=== PATIENT | male | born 1950 | race Caucasian/White ===

== ENCOUNTER 2018-06-13 13:26 | Emergency (ER) | payer MEDICARE, OTHER, SELFPAY ==
[2018-06-13 13:27] VITALS: BP 101/64; PULSE 79; RESP 16; TEMP 36.6; BMI 23.0
[2018-06-13] MEDS: Dicyclomine 20 MG/2 ML Vial IM (15:08)
[2018-06-13] MEDS: 0.9% Normal Saline 1,000 ML 1000 ML IV (15:08)
[2018-06-13 15:19] LABS: Absolute Lymphocyte Count 1.23 X10^3/ul (0.83-4.51); Absolute Neutrophil Count 4.7 X10^3/uL (2.0-7.7); Basophil# 0.03 X10^3/uL; Basophil% 0.5 % (0-1); Eosinophil# 0.09 X10^3/uL; Eosinophils% 1.4 % (0-5); Hematocrit 38.6 % (40-54); Hemoglobin 13.1 g/dl (13.0-16.5); Lymphocyte # 1.23 X10^3/ul (4.0); Lymphocyte % 18.6 % (19-41); Mean Corp Hgb Conc 33.9 g/gl (32-36); Mean Corpuscular Hgb 34.7 pg (27.0-32.0); Mean Corpuscular Volume 102.1 fL (80-94); Mean Platelet Vol. 12.2 fl (6.2-12.0); Monocyte# 0.53 X10^3/uL; Neutrophil # 4.73 X10^3/uL (2.7-7.7); Neutrophil % 71.3 % (47-70); Platelet Count 77 K/mm3 (150-450); RBC Distribution Width CV 14.1 % (11.6-14.6); RBC Distribution Width SD 52.9 fl (35.1-43.9); Red Blood Count 3.78 M/mm3 (4.6-6.2); White Blood Count 6.6 K/mm3 (4.4-11.0)
[2018-06-13 15:20] LABS: POSITIVE COUNT NO; POSITIVE DIFFERENTIAL NO; POSITIVE MORPHOLOGY NO
[2018-06-13 15:26] VITALS: BP 114/71; PULSE 57; RESP 16; O2SAT 100
[2018-06-13 15:35] LABS: ALB/GLOB Ratio 0.8 RATIO (0.9-2.4); AST(SGOT) 28 U/L (15-37); Alanine Aminotransfer ALT/SGPT 20 U/L (16-61); Albumin, Serum 2.7 g/dL (3.2-5.0); Alkaline Phosphatase 70 U/L (45-117); Anion Gap 6 (5-15); BUN 7 mg/dL (7-18); BUN/Creat Ratio 7.1 RATIO (10-20); Chloride 102 mmol/L (98-107); Creatinine, Serum 0.99 mg/dL (0.70-1.30); EST Glomerular Filtration Rate 80 mL/min (>60); Est Glom Filt Rate - Afr Amer 97 mL/min (>60); Estimated Creatinine Clearance 74.45 ml/min; Globulin 3.2 g/dL (2.2-4.2); Glucose 246 mg/dL (74-106); Potassium 4.7 mmol/L (3.5-5.1); Protein, Total 5.9 g/dL (6.4-8.2); Sodium Level 135 mmol/L (136-145)
--- NOTE | 2018-06-13 16:18 | ED.VISSUMM ---
- ER Visit Summary Date of Service: 06/13/18 Chief Complaint: Diarrhea History of Present Illness: The patient is a 68 M patient presents with 6 days of abdominal cramping and loose watery stool about 10-12 episodes per day. This is subsiding but he feels more weak. He has no fever or chills he has abdominal cramping but no significant pain and this is intermittent he had initial nausea and vomiting which also improved. He has no chest pain shortness of breath no travel history no antibiotics no recent camping and no recent contacts. Physical Examination: Not appear in acute distress. Slightly dry mucous membranes, no obvious facial deformity No C-spine tenderness supple neck. Regular rate and rhythm without any obvious murmurs Clear lungs bilaterally speaking in full sentences without any obvious respiratory distress Abdomen soft and nontender no guarding or rebound Moves all extremities without any difficulty or pain. Skin does not show any obvious rashes or lesions, no trauma. Alert oriented ?3 with no gross focal deficit Emergency Department Course and Treatment: Patient is given IV fluids, he feels slightly better. He is given Bentyl. I do believe this is self limiting diarrheal infection. He had recent blood work and stool work which I obtained from the outside facility. C. difficile is negative and the rest of the stool cultures so far negative. He appears well and he will be discharged in stable condition Discharge stable condition Impression: [Diarrhea] This note was generated with [employer] dictation software. It may contain incorrect words, spelling, and punctuation that were not noted in review of the chart prior to signing ED Disposition - Plan for ED Patient: Disposition: Home or Assisted Living Chief Complaint: Diarrhea Instructions: ED Vomiting Diarrhea Nonspecific Ad Prescriptions: Dicyclomine HCl [Bentyl] 20 mg PO TIDAC #20 cap Referrals: Joey Escalante Jr., MD [Primary Care Provider] - 3-5 Days
[2018-06-13 16:34] VITALS: BP 114/76; PULSE 57; RESP 16; O2SAT 100
== END 2018-06-13 16:39 | disposition home or self-care (01) ==
PROVIDERS: Emergency Provider Emergency Medicine; Family Provider Internal Medicine; PCP Internal Medicine
DX: R19.7 Diarrhea, unspecified (principal); R10.9 Unspecified abdominal pain; E10.9 Type 1 diabetes mellitus without complications; I10 Essential (primary) hypertension; E78.00 Pure hypercholesterolemia, unspecified; Z72.0 Tobacco use
CPT/HCPCS: 80053; 85025; 96360; 96372; 99282; J7030; A4216

== ENCOUNTER 2022-04-16 13:32 | Emergency (ER) | payer MEDICARE, SELFPAY ==
[2022-04-16 13:33] VITALS: BP 121/72; PULSE 77; RESP 16; TEMP 35.9; O2SAT 98; BMI 23.3
[2022-04-16] MEDS: Acetaminophen 500 MG Tablet 1000 MG PO (14:46)
--- NOTE | 2022-04-16 15:10 | RAD_ITS ---
HISTORY: Cough. TECHNIQUE: XR Chest 1 View. COMPARISON: None. FINDINGS: CARDIOMEDIASTINAL BORDERS: Cardiac silhouette within normal limits in size. Mediastinal contour unremarkable with mild calcification of the aortic knob. LUNGS: Radiographically clear. PLEURA: No pleural effusion or pneumothorax seen. OSSEOUS STRUCTURES: Degenerative change. RAD/Chest 1 View (Portable) IMPRESSION: No acute cardiopulmonary process identified. Electronically Signed: Bhavani Nunez MD at 15:41 EDT ,
[2022-04-16] MEDS: 0.9% Normal Saline 1,000 ML 1000 ML IV (15:11)
--- NOTE | 2022-04-16 15:14 | EDS_ITS ---
HPI History of Present Illness Chief Complaint: General Illness Informant: patient Onset/Context/Timing Onset: Days (5) Context: Gradual Onset Timing: Continuous Quality: Aching, weakness Location: Generalized Worsened by: Nothing Relieved by: Nothing Narrative Narrative: Patient presents with generalized weakness that has been getting worse over the last 5 days. Patient states he feels aching all over. Patient states nothing makes it better and nothing makes it worse. Patient states he was exposed to COVID-19 recently. Patient states he tested +2 days ago and again today. Patient admits to a fever at home of 100.8. Patient admits to some sweats. Patient also admits to some nausea, vomiting, and diarrhea. Patient admits to general myalgias and a mild cough. Patient admits to some rhinorrhea. [facility] Medical History (Updated 04/16/22 @ 16:[address] Irving Sexton, ) Celiac disease Diabetes Helicobacter pylori (H. pylori) Hypothyroidism Home Medications dicyclomine 10 mg capsule 20 mg PO TIDAC #20 caps 06/13/18 [Rx Last Taken Unknown] insulin glargine 100 unit/mL subcutaneous solution (Lantus U-100 Insulin) 16 un its SQ QHS 06/13/18 [History Last Taken Unknown] insulin lispro 100 unit/mL subcutaneous solution (Humalog U-100 Insulin) 1 units SQ ACHS 06/13/18 [History Last Taken Unknown] levothyroxine 137 mcg tablet 137 mcg PO DAILY 06/13/18 [History Last Taken Unknown] lisinopril 5 mg tablet 5 mg PO DAILY 06/13/18 [History Last Taken Unknown] magnesium oxide 200 mg PO DAILY 06/13/18 [History Last Taken Unknown] ondansetron 4 mg disintegrating tablet 4 mg PO Q6H PRN PRN Nausea 06/13/18 [History Last Taken Unknown] prochlorperazine 25 mg rectal suppository (Compro) 25 mg [place] DAILY PRN Nausea 06/13/18 [History Last Taken Unknown] Lipitor 1 tab DAILY 04/16/22 [History Last Taken Unknown] Synthroid 1 tab DAILY 04/16/22 [History Last Taken Unknown] aspirin 81 mg tablet,delayed release 81 mg PO DAILY 04/16/22 [History Last Taken Unknown] cholestyramine (with sugar) 4 gram powder for susp in a packet 4 ea DAILY 04/16/22 [History Last Taken Unknown] nirmatrelvir 300 mg (150 mg x2)-ritonavir 100 mg tablet,dose pack(EUA) (Paxlovid) See Rx Instructions PO .COMPLEX #30 tabs 04/16/22 [Rx Last Taken Unknown] omeprazole 20 mg capsule,delayed release 20 mg DAILY 04/16/22 [History Last Taken Unknown] Allergy/AdvReac Type Severity Reaction Status Date / Time amoxicillin AdvReac Vomiting Verified 04/16/22 14:05 hydrocodone AdvReac Vomiting Verified 04/16/22 14:05 meloxicam AdvReac Vomiting Verified 04/16/22 14:34 Surgical History (Updated 04/16/22 @ 15:[address] Irving Sexton DO) History of appendectomy History of total right knee replacement Social History Smoking Status: Current every day smoker tobacco type: cigarettes ROS ROS ED Constitutional Constitutional ED: Reports fever(s) and sweats; Denies chills Eyes Eyes: Reports blurry vision ENT ENT ED: Reports rhinorrhea; Denies sore throat Cardiovascular Cardiovascular: Denies chest pain or palpitations Respiratory/Chest Respiratory/Chest: Reports cough; Denies dyspnea Gastrointestinal Gastrointestinal: Reports diarrhea, nausea and vomiting Genitourinary Genitourinary ED: Denies dysuria or hematuria Musculoskeletal Musculoskeletal: Reports myalgias; Denies back pain or neck pain Integumentary Denies abscess or rash Neurologic Neurologic: Denies headache(s) or weakness Allergic/Immunologic Allergic/Immunologic ED: Denies mouth swelling or urticaria EXAM Physical Exam Const Vital Signs: 04/16/22 13:33 04/16/22 14:05 Temperature 96.7 F L Temperature Source Temporal Pulse Rate 77 Respiratory Rate 16 Respiratory Effort Normal Non-Labored Respiratory Pattern Normal Blood Pressure 121/72 H Blood Pressure Mean 88 Pulse Ox 98 Oxygen Delivery Method Room Air Positive well nourished and well developed General Appearance ED: well developed and NAD HEENT Reports moist mucous membranes Neck supple and no JVD Resp normal respiratory effort and clear to auscultation bilaterally Cardio regular rate, regular rhythm and no murmurs GI normal to inspection, nondistended, normoactive bowel sounds and non-tender Palpation: soft Extremity normal to inspection General Extremety ED: Negative for edema or tenderness General Extremity: Negative for edema Neuro oriented x3, CN's II-XII intact bilaterally and no sensory deficits noted Sensorium / Orientation: alert Motor Exam: strength 5/5 throughout Psych mental status grossly normal Skin no rashes or lesions noted MDM MDM MDM Narrative Medical decision making narrative: Portable 1 view chest x-ray was obtained. On my interpretation, lung bill are clear. There is normal cardiac silhouette. Bony thorax is normal. There is no acute process noted. Radiologist also interpreted the x-ray and agrees. CBC shows a white blood cell count of 3.2. Hemoglobin was 12.7 and hematocrit was 37.2. Platelets were slightly low at 113. These were improved compared to previous results. Comprehensive metabolic profile shows a mild hyperkalemia 5.2 but the specimen was slightly hemolyzed. AST was 150, ALT was 161, and alk phos was 268. Patient was advised of his findings. Patient is feeling better on reevaluation. Patient was given a prescription for Paxlovid. Patient was instructed to in 3 to 5 days. Patient understood and was agreeable with the plan. All questions were answered. Lab Data Attestation: I reviewed the patient's lab results. Labs: Laboratory Results - last 24 hr 04/16/22 04/16/22 15:10 15:10 WBC 3.2 L RBC 3.67 L Hgb 12.7 L Hct 37.2 L MCV 101.4 H MCH 34.6 H MCHC 34.1 RDW Std Deviation 52.0 H RDW Coeff of Holly 13.9 Plt Count 113 L MPV 10.9 Immature Gran % (Auto) 0.300 Neut % (Auto) 70.8 H Lymph % (Auto) 17.0 L [place] % (Auto) 11.6 H Eos % (Auto) 0.0 Baso % (Auto) 0.3 Absolute Neuts (auto) 2.3 Absolute Lymphs (auto) 0.54 L Nucleated RBC % 0 Differential Comment SEE COMMENT Diff Path Review May foll Platelet Estimate SLT DEC RBC Morphology N CHROM Anisocytosis 1+ Macrocytosis 1+ Sodium 130 L Potassium 5.2 H Chloride 100 Carbon Dioxide 27.0 Anion Gap 3 L BUN 14 Creatinine 1.12 Estim Creat Clear Calc 64.43 Est GFR (MDRD) Af Amer 83 Est GFR (MDRD) Non-Af 69 BUN/Creatinine Ratio 12.5 Glucose 179 H Calcium 8.1 L Total Bilirubin 0.60 AST 150 H ALT 161 H Alkaline Phosphatase 268 H Total Protein 6.0 L Albumin 2.6 L Globulin 3.4 Albumin/Globulin Ratio 0.8 L Radiography Chest X-Ray - ED: 1 View, Read by ED Physician, Read by Radiologist and No Acute Disease Diagnostic Testing: Clinical Impression(s) from Imaging Studies Chest X-Ray 04/16/22 15:10 IMPRESSION: No acute cardiopulmonary process identified. Electronically Signed: Bhavani Nunez MD at 15:41 EDT , Discharge Plan Triage Chief Complaint: General Illness ED Provider: Irving Sexton Dx/Rx/DC Orders Clinical Impression: COVID-19, Other pancytopenia Instructions: Coronavirus Disease 2019 (COVID-19): Caring for Yourself or Others Prescriptions: New Paxlovid (EUA) 300 mg (150 mg x 2)-100 mg tablets,dose pack See Rx Instructions .ROUTE .COMPLEX Qty: 30 0RF Rx Instructions: take TWO 150 mg tablets of nirmatrelvir with ONE 100 mg tablet of ritonavir twice daily for 5 days No Action levothyroxine 137 MCG tablet 137 mcg PO DAILY Label Comments: TAKE 1 TABLET EVERY DAY insulin glargine [Lantus U-100 Insulin] 100 UNIT/ML solution 16 units SQ QHS prochlorperazine [Compro] 25 MG suppository 25 mg [place] DAILY PRN (Reason: Nausea) lisinopril 5 MG tablet 5 mg PO DAILY Label Comments: TAKE 1 TABLET EVERY DAY insulin lispro [Humalog U-100 Insulin] 100 UNIT/ML solution 1 units SQ ACHS Rx Instructions: per sliding scale. 1 unit per 10 carbs ondansetron 4 MG tablet 4 mg PO Q6H PRN PRN (Reason: Nausea) Label Comments: DISSOLVE 1 TABLET EVERY 6 HOURS NEEDED magnesium oxide 200 MG tablet 200 mg PO DAILY dicyclomine 10 MG capsule 20 mg PO TIDAC Qty: 20 0RF aspirin 81 mg tablet,delayed release (DR/EC) 81 mg PO DAILY Label Comments: TAKE 1 TABLET BY MOUTH EVERY DAY DIRECTED omeprazole 20 mg capsule,delayed release(DR/EC) 20 mg DAILY cholestyramine (with sugar) 4 gram powder in packet 4 ea DAILY Lipitor 80 MG 1 tab DAILY Synthroid 137 MCG 1 tab DAILY Primary Care Provider: Erik Coffman Referrals: Erik Coffman MD [Primary Care Provider] - 3-5 Days Disposition Disposition: Home, Self Care
[2022-04-16 15:23] LABS: Absolute Lymphocyte Count 0.54 X10^3/uL (0.83-4.51); Absolute Neutrophil Count 2.3 X10^3/uL (2.0-7.7); Basophil# 0.01 X10^3/uL; Basophil% 0.3 % (0-1); Hematocrit 37.2 % (40-54); Hemoglobin 12.7 g/dL (13.0-16.5); Lymphocyte # 0.54 X10^3/ul (0.83-4.51); Mean Corp Hgb Conc 34.1 g/dL (32-36); Mean Corpuscular Hgb 34.6 pg (27.0-32.0); Mean Corpuscular Volume 101.4 fL (80-94); Mean Platelet Vol. 10.9 fl (6.2-12.0); Monocyte# 0.37 X10^3/uL; Monocyte% 11.6 % (0-10); NRBC Flagged by Analyzer 0 % (0-5); Neutrophil # 2.25 X10^3/uL (2.7-7.7); Neutrophil % 70.8 % (47-70); POSITIVE DIFFERENTIAL YES; Platelet Count 113 K/mm3 (150-450); RBC Distribution Width CV 13.9 % (11.6-14.6); Red Blood Count 3.67 M/mm3 (4.6-6.2); White Blood Count 3.2 K/mm3 (4.4-11.0)
[2022-04-16 15:41] LABS: ALB/GLOB Ratio 0.8 RATIO (0.9-2.4); AST(SGOT) 150 U/L (15-37); Alanine Aminotransfer ALT/SGPT 161 U/L (16-61); Albumin, Serum 2.6 g/dL (3.2-5.0); Alkaline Phosphatase 268 U/L (45-117); Anion Gap 3 (5-15); BUN 14 mg/dL (7-18); BUN/Creat Ratio 12.5 RATIO (10-20); Calcium,Total 8.1 mg/dL (8.5-10.1); Chloride 100 mmol/L (98-107); Creatinine, Serum 1.12 mg/dL (0.70-1.30); EST Glomerular Filtration Rate 69 mL/min (>60); Est Glom Filt Rate - Afr Amer 83 mL/min (>60); Estimated Creatinine Clearance 64.43 ml/min; Globulin 3.4 g/dL (2.2-4.2); Glucose 179 mg/dL (74-106); Potassium 5.2 mmol/L (3.5-5.1); Sodium Level 130 mmol/L (136-145)
[2022-04-16 16:09] LABS: Differential Indicated SCAN CRITERIA MET
[2022-04-16 16:13] LABS: Anisocytosis 1+; Macrocytosis 1+; Platelet Estimate SLT DEC (ADEQ); Red Cell Morphology N CHROM NORMAL (NORM C&C)
[2022-04-16 16:31] VITALS: BP 154/64; PULSE 70; RESP 16; TEMP 36.6; O2SAT 97
[2022-04-20 07:01] LABS: Pathologist Review Reviewed
== END 2022-04-16 16:41 | disposition home or self-care (01) ==
PROVIDERS: Emergency Provider Emergency Medicine; PCP Family Medicine; Visit Provider Emergency Medicine
DX: U07.1 COVID-19 (principal); D61.818 Other pancytopenia; E11.9 Type 2 diabetes mellitus without complications; E87.5 Hyperkalemia; F17.210 Nicotine dependence, cigarettes, uncomplicated; Z20.822 Contact with and (suspected) exposure to COVID-19; E03.9 Hypothyroidism, unspecified
CPT/HCPCS: 71045; 80053; 85025; 99285; J7030; A4216

== ENCOUNTER 2022-06-05 17:46 | Emergency (ER) | payer MEDICARE, SELFPAY ==
[2022-06-05 17:47] VITALS: BP 92/46; PULSE 92; RESP 18; TEMP 36.6; O2SAT 99; BMI 22.6
[2022-06-05 17:53] VITALS: BP 111/81; PULSE 99; RESP 19
--- NOTE | 2022-06-05 18:00 | EDS_ITS ---
HPI History of Present Illness Chief Complaint: General Illness Informant: patient and spouse/S.O. Onset/Context/Timing Onset: Today and Hours Context: Gradual Onset Timing: Continuous Current Severity: Mild Maximum Severity: Mild Narrative Narrative: 72-year-old male history of diabetes and hypothyroidism. Prior appendectomy. States he has been feeling fine recently and today he washed his car cut the grass. Said he came inside started with nausea and vomiting about every half an hour. No significant abdominal pain. No diarrhea or constipation. No dysuria or fever. Said he tried taking Zofran at home but kept throwing it up. Prior similar symptoms: Yes Recent Illness/Hospitalization: No PFSH PFS Medical History Celiac disease Diabetes Helicobacter pylori (H. pylori) Hypothyroidism Home Medications insulin glargine 100 unit/mL subcutaneous solution (Lantus U-100 Insulin) 16 units SQ QHS 06/13/18 [History Last Taken Unknown] insulin lispro 100 unit/mL subcutaneous solution (Humalog U-100 Insulin) 1 units SQ ACHS 06/13/18 [History Last Taken Unknown] levothyroxine 137 mcg tablet 137 mcg PO DAILY 06/13/18 [History Last Taken Unknown] lisinopril 5 mg tablet 5 mg PO DAILY 06/13/18 [History Last Taken Unknown] ondansetron 4 mg disintegrating tablet 4 mg PO Q6H PRN PRN Nausea 06/13/18 [History Last Taken Unknown] prochlorperazine 25 mg rectal suppository (Compro) 25 mg [place] DAILY PRN Nausea 06/13/18 [History Last Taken Unknown] Lipitor 1 tab DAILY 04/16/22 [History Last Taken Unknown] Synthroid 1 tab DAILY 04/16/22 [History Last Taken Unknown] aspirin 81 mg tablet,delayed release 81 mg PO DAILY 04/16/22 [History Last Taken Unknown] omeprazole 20 mg capsule,delayed release 20 mg DAILY 04/16/22 [History Last Taken Unknown] Allergy/AdvReac Type Severity Reaction Status Date / Time amoxicillin AdvReac Vomiting Verified 06/05/22 17:58 hydrocodone AdvReac Vomiting Verified 06/05/22 17:58 meloxicam AdvReac Vomiting Verified 06/05/22 17:58 Surgical History History of appendectomy History of total right knee replacement Social History Smoking Status: Current every day smoker tobacco type: cigarettes ROS ROS ED ROS Narrative Nausea and vomiting. Review of Systems ROS Unobtainable: Denies due to encephalopathy Constitutional Constitutional ED: Denies chills or fever(s) Eyes Eyes: Denies blurry vision Cardiovascular Cardiovascular: Denies chest pain Respiratory/Chest Respiratory/Chest: Denies dyspnea Gastrointestinal Gastrointestinal: Reports nausea and vomiting; Denies abdominal pain, constipation, diarrhea or melena Genitourinary Genitourinary ED: Denies dysuria Musculoskeletal Musculoskeletal: Denies arthralgias Integumentary Denies abscess Neurologic Neurologic: Denies headache(s) Psychiatric Psychiatric: Denies anxiety Endocrine Endocrinology: Denies cold intolerance Hematologic/Lymphatic Hematologic/Lymphatic: Reports none Allergic/Immunologic Allergic/Immunologic ED: Denies mouth swelling or tongue swelling EXAM Physical Exam Narrative Exam Narrative: 72-year-old male no acute distress vital signs stable afebrile initial blood pressure 92/40 6 repeat 111/81. H EENT exam unremarkable mildly dry mucous members. Neck nontender. Lungs clear to auscultation. Heart regular rhythm rate about 90 no murmur. Abdomen soft, nontender, nondistended normal bowel sounds no peritoneal signs. Right and left lower quadrants are unremarkable. No hernia or mass no obstruction. Normal bowel sounds. Soft. Moving all 4 extremities. Neurologically awake and alert with no focal motor deficits. Const Vital Signs: 06/05/22 17:47 06/05/22 17:53 06/05/22 17:54 Temperature 97.8 F Temperature Source Temporal Pulse Rate 92 99 Respiratory Rate 18 19 H Respiratory Effort Normal Non-Labored Respiratory Pattern Normal Blood Pressure 92/46 L 111/81 H Blood Pressure Mean 61 91 Pulse Ox 99 Oxygen Delivery Method Room Air Room Air Positive well nourished and well developed; Negative for obese, cachectic, contractures or unkempt General Appearance ED: well developed and NAD; Negative for unkempt, cachectic, contractures, cyanotic or diaphoretic Nutritional Appearance: Negative for cachectic or obese HEENT Reports dry mucous membranes; Denies moist mucous membranes Negative for trauma or tenderness Mouth ED: Yes dry mucous membranes Mouth: dry mucous membranes Eyes PERRL and EOMs intact bilaterally General Eye ED: Negative for pale conjunctiva or scleral icterus Neck no lymphadenopathy, supple and no JVD General: Negative for tenderness Lymph Lymphatic: Negative for other Chest Wall inspection of chest normal and palpation of chest normal Chest: Negative for other Resp normal respiratory effort and clear to auscultation bilaterally Effort and Inspection: Negative for retractions Auscultation: Negative for rales, rhonchi or wheezes Cardio regular rate, regular rhythm, S1 normal heart sound, S2 normal heart sound and no murmurs Palpation: Negative for palpable S3 Rate: Negative for bradycardia Rhythm: Negative for abnormal rhythm GI normal to inspection, nondistended, normoactive bowel sounds, non-tender, non- distended and no masses Inspection: Negative for abdominal distention Auscultation: normoactive bowel sounds Palpation: soft; Negative for tender, guarding, mass or rebound tenderness present Back/Spine no CVA tenderness General Back: Negative for CVA tenderness Cervical Spine: Negative for cervical spine tenderness Thoracic Spine / Upper Back: Negative for thoracic spinal tenderness Lumbar Spine / Lower Back: Negative for lumbar spinal tenderness Extremity normal to inspection General Extremety ED: Negative for edema or tenderness General Extremity: Negative for edema Neuro oriented x3 and CN's II-XII intact bilaterally Sensorium / Orientation: alert; Negative for orientation impaired, lethargic or stuporous Motor Exam: strength 5/5 throughout; Negative for general weakness Psych mental status grossly normal Appearance: Negative for unkempt Attitude: No agitated Mood & Affect: Negative for depressed or anxious Skin no rashes or lesions noted and no wounds Lesions: No lesion noted Rashes: No rashes noted Trauma: Negative for abrasion Wounds: Negative for wounds noted MDM MDM MDM Narrative Medical decision making narrative: 72-year-old male history and exam are consistent with a viral gastroenteritis. Screening labs. IV Zofran. IV fluids times a liter and p.o. fluid challenge and reexamined. Repeat exam at 7:41 PM patient doing well. Abdomen benign. Said he feels 90% better. He has been on hold down p.o. fluids. His abdomen is completely nontender nondistended. He will be discharged home treated as a viral gastroenteritis. He has Zofran and another nausea medication at home. Lab Data Attestation: I reviewed the patient's lab results. Lab results narrative: CBC unremarkable white count of 6 H&H of 13.8 and 40. Platelets 211. Electrolytes show a gap of 7 BUN and creatinine are 19 and 1.24. Liver enzymes unremarkable. Labs: Laboratory Results - last 24 hr 06/05/22 06/05/22 18:15 18:15 WBC 6.0 RBC 3.89 L Hgb 13.8 Hct 40.2 MCV 103.3 H MCH 35.5 H MCHC 34.3 RDW Std Deviation 56.8 H RDW Coeff of Holly 14.8 H Plt Count 211 MPV 9.3 Immature Gran % (Auto) 0.300 Neut % (Auto) 89.3 H Lymph % (Auto) 2.8 L [place] % (Auto) 7.3 Eos % (Auto) 0.0 Baso % (Auto) 0.3 Absolute Neuts (auto) 5.4 Absolute Lymphs (auto) 0.17 L Nucleated RBC % 0 Differential Comment SEE COMMENT Platelet Estimate ADEQUATE RBC Morphology N CHROM Anisocytosis 1+ Macrocytosis 1+ Sodium 140 Potassium 3.7 Chloride 105 Carbon Dioxide 28.0 Anion Gap 7 BUN 19 H Creatinine 1.24 Estim Creat Clear Calc 56.79 Est GFR (MDRD) Af Amer 74 Est GFR (MDRD) Non-Af 61 BUN/Creatinine Ratio 15.3 Glucose 163 H Calcium 8.8 Total Bilirubin 0.80 AST 19 ALT 22 Alkaline Phosphatase 70 Total Protein 6.3 L Albumin 3.2 Globulin 3.1 Albumin/Globulin Ratio 1.0 Discharge Plan Triage Chief Complaint: General Illness ED Provider: Miguelangel Small Dx/Rx/DC Orders Clinical Impression: Viral gastroenteritis, Vomiting, Diabetes Instructions: ED Gastroenteritis, Viral (Adult) Prescriptions: No Action levothyroxine 137 MCG tablet 137 mcg PO DAILY Label Comments: TAKE 1 TABLET EVERY DAY insulin glargine [Lantus U-100 Insulin] 100 UNIT/ML solution 16 units SQ QHS prochlorperazine [Compro] 25 MG suppository 25 mg [place] DAILY PRN (Reason: Nausea) lisinopril 5 MG tablet 5 mg PO DAILY Label Comments: TAKE 1 TABLET EVERY DAY insulin lispro [Humalog U-100 Insulin] 100 UNIT/ML solution 1 units SQ ACHS Rx Instructions: per sliding scale. 1 unit per 10 carbs ondansetron 4 MG tablet 4 mg PO Q6H PRN PRN (Reason: Nausea) Label Comments: DISSOLVE 1 TABLET EVERY 6 HOURS NEEDED aspirin 81 mg tablet,delayed release (DR/EC) 81 mg PO DAILY Label Comments: TAKE 1 TABLET BY MOUTH EVERY DAY DIRECTED omeprazole 20 mg capsule,delayed release(DR/EC) 20 mg DAILY Lipitor 80 MG 1 tab DAILY Synthroid 137 MCG 1 tab DAILY Primary Care Provider: FRANKIE ARIAS CNP Referrals: Erik Coffman MD [Non-Staff] - 1-2 Days if not improving Activity Restrictions/Additional Instructions: Plenty of fluids and rest. Increase your diet slowly as tolerated. Your home Zofran as needed for nausea. Return if feeling worse or unable to keep fluids down. Disposition Disposition: Home, Self Care
[2022-06-05] MEDS: Ondansetron 4 MG/2 ML Vial IV (18:14)
[2022-06-05] MEDS: 0.9% Normal Saline 1,000 ML 1000 ML IV (18:14)
[2022-06-05 18:25] LABS: Absolute Lymphocyte Count 0.17 X10^3/uL (0.83-4.51); Absolute Neutrophil Count 5.4 X10^3/uL (2.0-7.7); Basophil# 0.02 X10^3/uL; Basophil% 0.3 % (0-1); Hematocrit 40.2 % (40-54); Hemoglobin 13.8 g/dL (13.0-16.5); Lymphocyte # 0.17 X10^3/ul (0.83-4.51); Lymphocyte % 2.8 % (19-41); Mean Corp Hgb Conc 34.3 g/dL (32-36); Mean Corpuscular Hgb 35.5 pg (27.0-32.0); Mean Corpuscular Volume 103.3 fL (80-94); Mean Platelet Vol. 9.3 fl (6.2-12.0); Monocyte# 0.44 X10^3/uL; Monocyte% 7.3 % (0-10); NRBC Flagged by Analyzer 0 % (0-5); Neutrophil # 5.39 X10^3/uL (2.7-7.7); Neutrophil % 89.3 % (47-70); POSITIVE DIFFERENTIAL YES; Platelet Count 211 K/mm3 (150-450); RBC Distribution Width CV 14.8 % (11.6-14.6); RBC Distribution Width SD 56.8 fl (35.1-43.9); Red Blood Count 3.89 M/mm3 (4.6-6.2)
[2022-06-05 18:41] LABS: AST(SGOT) 19 U/L (15-37); Alanine Aminotransfer ALT/SGPT 22 U/L (16-61); Albumin, Serum 3.2 g/dL (3.2-5.0); Alkaline Phosphatase 70 U/L (45-117); Anion Gap 7 (5-15); BUN 19 mg/dL (7-18); BUN/Creat Ratio 15.3 RATIO (10-20); Calcium,Total 8.8 mg/dL (8.5-10.1); Chloride 105 mmol/L (98-107); Creatinine, Serum 1.24 mg/dL (0.70-1.30); EST Glomerular Filtration Rate 61 mL/min (>60); Est Glom Filt Rate - Afr Amer 74 mL/min (>60); Estimated Creatinine Clearance 56.79 ml/min; Globulin 3.1 g/dL (2.2-4.2); Glucose 163 mg/dL (74-106); Potassium 3.7 mmol/L (3.5-5.1); Protein, Total 6.3 g/dL (6.4-8.2); Sodium Level 140 mmol/L (136-145)
[2022-06-05 18:56] LABS: Differential Indicated SCAN CRITERIA MET
[2022-06-05 18:58] LABS: Anisocytosis 1+; Macrocytosis 1+; Platelet Estimate ADEQUATE (ADEQ); Red Cell Morphology N CHROM NORMAL (NORM C&C)
[2022-06-05 20:14] VITALS: BP 127/62; PULSE 85; PULSE 86; RESP 23; RESP 25
== END 2022-06-05 20:21 | disposition home or self-care (01) ==
PROVIDERS: Emergency Provider Emergency Medicine; Visit Provider Emergency Medicine
DX: A08.4 Viral intestinal infection, unspecified (principal); E11.9 Type 2 diabetes mellitus without complications; F17.210 Nicotine dependence, cigarettes, uncomplicated; E03.9 Hypothyroidism, unspecified
CPT/HCPCS: 80053; 85025; 96361; 96374; 99283; J2405